=== PATIENT | female | born 1970 | race Caucasian/White ===

== ENCOUNTER 2017-07-22 19:56 | Emergency (ER) | payer OTHER ==
[~2017-07-22] VITALS: Ht 167.6 cm; Wt 65.9 kg
[~2017-07-22 19:56] MED LIST: ENOX60P SQ; PERC5TAB12 PO; WARF6 PO
[2017-07-22 20:01] VITALS: BP 114/73; PULSE 109; RESP 16; TEMP 97.7; O2SAT 98
[2017-07-22] MEDS ORDERED: ONDANSETRON HCL 4 MG/2 ML VIAL IV PUSH ONE (21:15)
[2017-07-22] MEDS ORDERED: SODIUM CHLOR 0.9% 1000 ML INJ 1,000 ML IV ONE (21:15)
[2017-07-22] MEDS ORDERED: MORPHINE SULFATE 2 MG/ML INJ IV PUSH ONE (21:15)
[2017-07-22 21:25] LABS: AUTOMATED NEUTROPHIL # 8.1 TH/MM3 (1.8-7.7); BASOPHIL % 0.3 % (0.0-2.0); EOSINOPHIL % 0.3 % (0.0-4.0); HEMATOCRIT 38.9 % (35.0-46.0); HEMOGLOBIN 13.4 GM/DL (11.6-15.3); LYMPHOCYTE # 1.3 TH/MM3 (1.0-4.8); MEAN CORPUSCULAR HEMOGLOBIN 31.3 PG (27.0-34.0); MEAN CORPUSCULAR HGB CONC 34.4 % (32.0-36.0); MEAN PLATELET VOLUME 8.6 FL (7.0-11.0); MONO % 3.4 % (0.0-8.0); MONOCYTE # 0.3 TH/MM3 (0-0.9); PLATELET COUNT 306 TH/MM3 (150-450); RED BLOOD COUNT 4.27 MIL/MM3 (4.00-5.30); RED CELL DISTRIBUTION WIDTH 12.6 % (11.6-17.2); WHITE BLOOD COUNT 9.8 TH/MM3 (4.0-11.0)
[2017-07-22 21:38] LABS: INTERNATIONAL NORMALIZED RATIO 4.1 RATIO; PROTHROMBIN TIME - PATIENT 41.5 SEC (9.8-11.6)
[2017-07-22 21:43] LABS: BICARBONATE 22.4 MEQ/L (21.0-32.0); CALCIUM 8.3 MG/DL (8.5-10.1); CREATININE 0.68 MG/DL (0.50-1.00)
[2017-07-22] MEDS ORDERED: NORC5TAB PO (22:47)
--- NOTE | 2017-07-22 22:48 | PD ---
HPI . Nosebleed Chief Complaint: Nosebleed Time Seen by Provider: 21:03 Travel History International Travel<30 days: No Contact w/Intl Traveler<30days: No Traveled to known affect area: No History of Present Illness HPI Patient presents with epistaxis. Onset was 6 AM. She states that it has continued all day. It is bleeding from the left knee air. 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 He states that she is now feeling weak and dizzy. The bleeding has been moderate. There have been no modifying factors. PFSH Past Medical History Hx Anticoagulant Therapy: Yes (warfarin) Autoimmune Disease: No Cancer: No Cardiovascular Problems: No Diabetes: No Diminished Hearing: No Deep Vein Thrombosis: Yes (L LEG) Endocrine: No Genitourinary: No Hepatitis: No Hiatal Hernia: No Immune Disorder: No Musculoskeletal: No Neurologic: No Psychiatric: Yes (pt takes lorazepam as needed) Reproductive: Yes (FIBROID TUMOR UTERUS) Respiratory: Yes (PE) Thyroid Disease: No ?: Not Tubal Ligation: Yes Past Surgical History AICD: No Arteriovenous Shunt: No Insulin Pump: No Joint Replacement: No Oral Surgery: Yes (t and a ) Pacemaker: No Tonsillectomy: Yes Other Surgery: No Social History Alcohol Use: Yes (OCC) Tobacco Use: No Substance Use: No Allergies-Medications (Allergen,Severity, Reaction): Coded Allergies: No Known Allergies (Verified , 12/04/13) Reported Meds & Prescriptions Reported Meds & Active Scripts Active Reported Percocet 5/325 (Oxycodone/Acetaminophen) 5 Mg/325 Mg Tab 1 Tab PO Q4H PRN Lovenox (Enoxaparin Sodium) 60 Mg/0.6 Ml Inj 60 Mg SQ BID Coumadin (Warfarin Sodium) 6 Mg Tab 6 Mg PO DAILY pt stopped last dose was 11/30/13 Review of Systems Except as stated in HPI: all other systems reviewed are Neg HENT: Positive: Lightheadedness, Nosebleed Physical Exam Narrative GENERAL: Awake and alert. Moderate distress related to her epistaxis. SKIN: Warm and dry. Good color. HEAD: Normocephalic/atraumatic. EYES: Pupils are equal. Extraocular movements are intact. ENT: Active epistaxis from the left nostril. The blood is also running out of the right nostril and into her mouth. NECK: Normal range of motion. CARDIOVASCULAR: Regular rate and rhythm. RESPIRATORY: Nonlabored respirations. The MUSCULOSKELETAL: Atraumatic. NEUROLOGICAL: Nonfocal. PSYCHIATRIC: Appropriate mood and affect. Data Data Last Documented VS Vital Signs Date Time Temp Pulse Resp B/P (MAP) Pulse Ox O2 Delivery O2 Flow Rate FiO2 07/22/17 20:01 97.7 109 16 114/73 (87) 98 Room Air Orders Orders Complete Blood Count With Diff (07/22/17 20:17) Basic Metabolic Panel (Bmp) (07/22/17 20:17) Prothrombin Time / Inr (Pt) (07/22/17 20:17) Act Partial Throm Time (Ptt) (07/22/17 20:17) Sodium Chlor 0.9% 1000 Ml Inj (Ns 1000 M (07/22/17 21:15) Morphine Inj (Morphine Inj) (07/22/17 21:15) Ondansetron Inj (Zofran Inj) (07/22/17 21:15) Lipase (07/22/17 21:54) Labs Laboratory Tests Test 07/22/17 21:00 White Blood Count 9.8 TH/MM3 Red Blood Count 4.27 MIL/MM3 Hemoglobin 13.4 GM/DL Hematocrit 38.9 % Mean Corpuscular Volume 91.0 FL Mean Corpuscular Hemoglobin 31.3 PG Mean Corpuscular Hemoglobin Concent 34.4 % Red Cell Distribution Width 12.6 % Platelet Count 306 TH/MM3 Mean Platelet Volume 8.6 FL Neutrophils (%) (Auto) 83.0 % Lymphocytes (%) (Auto) 13.0 % Monocytes (%) (Auto) 3.4 % Eosinophils (%) (Auto) 0.3 % Basophils (%) (Auto) 0.3 % Neutrophils # (Auto) 8.1 TH/MM3 Lymphocytes # (Auto) 1.3 TH/MM3 Monocytes # (Auto) 0.3 TH/MM3 Eosinophils # (Auto) 0.0 TH/MM3 Basophils # (Auto) 0.0 TH/MM3 CBC Comment DIFF FINAL Differential Comment Prothrombin Time 41.5 SEC Prothromb Time International Ratio 4.1 RATIO Activated Partial Thromboplast Time 40.1 SEC Blood Urea Nitrogen 16 MG/DL Creatinine 0.68 MG/DL Random Glucose 147 MG/DL Calcium Level 8.3 MG/DL Sodium Level 132 MEQ/L Potassium Level 3.8 MEQ/L Chloride Level 101 MEQ/L Carbon Dioxide Level 22.4 MEQ/L Anion Gap 9 MEQ/L Estimat Glomerular Filtration Rate 92 ML/MIN MDM Medical Decision Making Medical Screen Exam Complete: Yes Emergency Medical Condition: Yes Differential Diagnosis Differential diagnosis includes but is not limited to epistaxis due to an upper respiratory infection, coagulopathy, local trauma, nasal fracture Narrative Course Patient presents with epistaxis. It is probably a posterior bleed. She is on Coumadin. INR was ordered as was a blood count. She has been given IV fluids because of the complaint of dizziness. She has had IV morphine and Zofran for discomfort and nausea. CBC Diagram 07/22/17 21:00 INR 4.0. Bleeding was controlled with a posterior/anterior Rhino Rocket. She'll be discharged home with instructions to hold her Coumadin. Return here in about 36 hours for removal of the packing and to have her INR rechecked. I will give her [place] to take for discomfort associated with packing. Diagnosis Primary Impression: Epistaxis Additional Impression: Warfarin-induced coagulopathy Patient Instructions: Epistaxis (DC), General Instructions Additional Instructions: Return here Thursday morning to have the packing removed and to have your INR rechecked. In the meantime, old Coumadin. You may consider speaking with her physician regarding an alternate anticoagulant. Med/Other Pt SpecificInfo: Prescription(s) given Scripts Hydrocodone-Acetaminophen ([place]) 5 Mg-325 Mg Tab 1 TAB PO Q4H Y for PAIN, #12 TAB 0 Refills Prov: Candida Mora MD 07/22/17 Disposition: DISCHARGE HOME Condition: Stable Candida Mora MD Jul 22, 2017 22:48
[2017-07-22 23:10] VITALS: BP 135/77
== END 2017-07-22 23:01 | disposition home or self-care (01) ==
LOC: NEPC 19:56
DX: R04.0 Epistaxis (principal); D68.9 Coagulation defect, unspecified; R53.1 Weakness; R42 Dizziness and giddiness; Z79.01 Long term (current) use of anticoagulants; Z86.718 Personal history of other venous thrombosis and embolism; Z86.711 Personal history of pulmonary embolism; Z79.899 Other long term (current) drug therapy
CPT/HCPCS: 30905; 80048; 83690; 85025; 85610; 85730; 96361; 96374; 96375; 99284; J2270; J2405; J7030

== ENCOUNTER 2017-07-24 10:21 | Emergency (ER) | payer OTHER ==
[~2017-07-24] VITALS: Ht 167.6 cm; Wt 66.0 kg
[~2017-07-24 10:21] MED LIST changes: +NORC5TAB PO
[2017-07-24 10:24] VITALS: BP 116/79; PULSE 89; RESP 14; TEMP 97.8; O2SAT 98
[2017-07-24 11:24] LABS: AUTOMATED NEUTROPHIL # 9.3 TH/MM3 (1.8-7.7); BASOPHIL % 0.3 % (0.0-2.0); EOSINOPHIL % 0.1 % (0.0-4.0); HEMATOCRIT 35.1 % (35.0-46.0); HEMOGLOBIN 11.9 GM/DL (11.6-15.3); LYMPH % 9.7 % (9.0-44.0); LYMPHOCYTE # 1.1 TH/MM3 (1.0-4.8); MEAN CELL VOLUME 91.5 FL (80.0-100.0); MEAN CORPUSCULAR HEMOGLOBIN 31.1 PG (27.0-34.0); MEAN PLATELET VOLUME 8.3 FL (7.0-11.0); MONO % 6.3 % (0.0-8.0); MONOCYTE # 0.7 TH/MM3 (0-0.9); NEUT % 83.6 % (16.0-70.0); PLATELET COUNT 252 TH/MM3 (150-450); RED BLOOD COUNT 3.84 MIL/MM3 (4.00-5.30); RED CELL DISTRIBUTION WIDTH 12.8 % (11.6-17.2); WHITE BLOOD COUNT 11.1 TH/MM3 (4.0-11.0)
[2017-07-24 11:32] LABS: INTERNATIONAL NORMALIZED RATIO 1.8 RATIO; PROTHROMBIN TIME - PATIENT 18.1 SEC (9.8-11.6)
[2017-07-24 11:48] LABS: ALBUMIN 3.5 GM/DL (3.4-5.0); ALKALINE PHOSPHATASE 109 U/L (45-117); ALT (GPT) 18 U/L (10-53); AST (GOT) 13 U/L (15-37); BICARBONATE 28.3 MEQ/L (21.0-32.0); BLOOD UREA NITROGEN 3 MG/DL (7-18); CALCIUM 8.3 MG/DL (8.5-10.1); CHLORIDE 101 MEQ/L (98-107); CREATININE 0.53 MG/DL (0.50-1.00); GLOMERULAR FILTRATION RATE 123 ML/MIN (>89); GLUCOSE,RANDOM 130 MG/DL (74-106); SODIUM (NA) 135 MEQ/L (136-145); TOTAL BILIRUBIN ADULT 0.9 MG/DL (0.2-1.0); TOTAL PROTEIN 7.3 GM/DL (6.4-8.2)
[2017-07-24 13:45] VITALS: BP 138/93; PULSE 86; RESP 18; O2SAT 99
--- NOTE | 2017-07-24 13:46 | PD ---
HPI Chief Complaint: Wound/Suture/Staple Re-Check Time Seen by Provider: 13:23 Travel History International Travel<30 days: No Contact w/Intl Traveler<30days: No Traveled to known affect area: No History of Present Illness HPI The patient is a 47-year-old female who presents to the emergency department for reevaluation of a nosebleed. The patient was seen in the emergency department 2 days ago for nosebleed the left nare, and subsequent underwent Rhino Rocket placement. The patient's INR at that time was 4.1. The patient does have a history of protein C deficiency and is currently on Coumadin. The patient is followed by her manager meeting, Dr. Barboza. The patient states she had placement of the Rhino Rocket 2 days ago, was advised to come back to the emergency department for removal today. She denies any bleeding down the posterior aspect of the anterior aspect since placement of the tube, however, does complain of pain secondary to placement of the Rhino Rocket. She does complain of left-sided headache. Symptoms are moderate, alleviated with Rhino Rocket, possibly exacerbated by elevated INR level. PFSH Past Medical History Hx Anticoagulant Therapy: Yes (warfarin) Autoimmune Disease: No Cancer: No Cardiovascular Problems: No Diabetes: No Diminished Hearing: No Deep Vein Thrombosis: Yes (L LEG) Endocrine: No Genitourinary: No Hepatitis: No Hiatal Hernia: No Immune Disorder: No Musculoskeletal: No Neurologic: No Psychiatric: Yes (pt takes lorazepam as needed) Reproductive: Yes (FIBROID TUMOR UTERUS) Respiratory: Yes (PE) Thyroid Disease: No Tubal Ligation: Yes Past Surgical History AICD: No Arteriovenous Shunt: No Insulin Pump: No Joint Replacement: No Oral Surgery: Yes (t and a ) Pacemaker: No Tonsillectomy: Yes Other Surgery: No Social History Alcohol Use: Yes (OCC) Tobacco Use: No Substance Use: No Allergies-Medications (Allergen,Severity, Reaction): Coded Allergies: No Known Allergies (Verified Adverse Reaction, Unknown, 07/24/17) Reported Meds & Prescriptions Reported Meds & Active Scripts Active [place] (Hydrocodone-Acetaminophen) 5 Mg-325 Mg Tab 1 Tab PO Q4H PRN Reported Warfarin 7.5 Mg Tab 7.5 Mg PO DAILY Review of Systems General / Constitutional: No: Fever HENT: Positive: Headaches, Nosebleed Cardiovascular: No: Chest Pain or Discomfort Respiratory: Positive: Other (history of PE), No: Shortness of Breath Hematologic/Lymphatic: Positive: Other (history of protein C deficiency with PE , followed by Dr. Barboza) Physical Exam Narrative GENERAL: Awake, alert, pleasant 47 year-old female who appears her stated age and is in no acute respiratory distress. SKIN: Focused skin assessment warm/dry. HEAD: Atraumatic. Normocephalic. EYES: Pupils equal and round. No scleral icterus. No injection or drainage. ENT: Rhino Rocket in place, dual-lumen, and left neck. Dry blood at the external neck, but no active bleeding. No visible active bleeding in the posterior oropharynx. NECK: Trachea midline. No JVD. CARDIOVASCULAR: Regular rate and rhythm. No murmur appreciated. RESPIRATORY: No accessory muscle use. Clear to auscultation. Breath sounds equal bilaterally. MUSCULOSKELETAL: No obvious deformities. No clubbing. No cyanosis. No edema. NEUROLOGICAL: Awake and alert. No obvious cranial nerve deficits. Motor grossly within normal limits. Normal speech. PSYCHIATRIC: Appropriate mood and affect; insight and judgment normal. Data Data Last Documented VS Vital Signs Date Time Temp Pulse Resp B/P (MAP) Pulse Ox O2 Delivery O2 Flow Rate FiO2 07/24/17 13:45 100 18 07/24/17 13:45 138/93 (108) 99 Room Air 07/24/17 10:24 97.8 Orders Orders Complete Blood Count With Diff (07/24/17 10:49) Comprehensive Metabolic Panel (07/24/17 10:49) Prothrombin Time / Inr (Pt) (07/24/17 10:49) Act Partial Throm Time (Ptt) (07/24/17 10:49) Ed Discharge Order (07/24/17 15:05) Labs Laboratory Tests Test 07/24/17 11:00 White Blood Count 11.1 TH/MM3 Red Blood Count 3.84 MIL/MM3 Hemoglobin 11.9 GM/DL Hematocrit 35.1 % Mean Corpuscular Volume 91.5 FL Mean Corpuscular Hemoglobin 31.1 PG Mean Corpuscular Hemoglobin Concent 34.0 % Red Cell Distribution Width 12.8 % Platelet Count 252 TH/MM3 Mean Platelet Volume 8.3 FL Neutrophils (%) (Auto) 83.6 % Lymphocytes (%) (Auto) 9.7 % Monocytes (%) (Auto) 6.3 % Eosinophils (%) (Auto) 0.1 % Basophils (%) (Auto) 0.3 % Neutrophils # (Auto) 9.3 TH/MM3 Lymphocytes # (Auto) 1.1 TH/MM3 Monocytes # (Auto) 0.7 TH/MM3 Eosinophils # (Auto) 0.0 TH/MM3 Basophils # (Auto) 0.0 TH/MM3 CBC Comment DIFF FINAL Differential Comment Prothrombin Time 18.1 SEC Prothromb Time International Ratio 1.8 RATIO Activated Partial Thromboplast Time 35.2 SEC Blood Urea Nitrogen 3 MG/DL Creatinine 0.53 MG/DL Random Glucose 130 MG/DL Total Protein 7.3 GM/DL Albumin 3.5 GM/DL Calcium Level 8.3 MG/DL Alkaline Phosphatase 109 U/L Aspartate Amino Transf (AST/SGOT) 13 U/L Alanine Aminotransferase (ALT/SGPT) 18 U/L Total Bilirubin 0.9 MG/DL Sodium Level 135 MEQ/L Potassium Level 4.2 MEQ/L Chloride Level 101 MEQ/L Carbon Dioxide Level 28.3 MEQ/L Anion Gap 6 MEQ/L Estimat Glomerular Filtration Rate 123 ML/MIN MDM Medical Decision Making Medical Screen Exam Complete: Yes Emergency Medical Condition: Yes Medical Record Reviewed: Yes Differential Diagnosis Differential diagnosis includes epistaxis, protein C deficiency, coagulopathy, Coumadin toxicity, anterior nosebleed, posterior nosebleed. Narrative Course The patient's Rhino Rocket was removed, she had a small amount of bleeding from the nose, direct pressure was applied. INR was evaluated, went from 4.1-1.8. The patient's bleeding did resolve. She had a small amount of clear pink drainage, one to 2 drops per minute, no drainage on the posterior aspect of her throat. The patient was advised to use Afrin, one spray the left nostril twice a day for the next 2 days. She is advised that if bleeding resumes, to apply pressure and if she is unable to resolve the bleeding after 15 minutes to 30 minutes, return for possible packing once again. The patient agrees and understands. Diagnosis Primary Impression: Epistaxis Patient Instructions: General Instructions Additional Instructions: Afrin 1 spray to the left naris twice a day for 2 days. If bleeding resumes hold pressure for 15-30 minutes, if it persists, return to the emergency department. Follow-up with her manager meeting. Please provide the patient a copy of her labs at discharge. Med/Other Pt SpecificInfo: No Change to Meds Disposition: 01 DISCHARGE HOME Condition: Stable Paul Rollins MD Jul 24, 2017 13:46
[2017-07-24] MEDS ORDERED: WARF-21 PO (13:47)
== END 2017-07-24 15:18 | disposition home or self-care (01) ==
LOC: NEPD 10:21
DX: R04.0 Epistaxis (principal); Z51.89 Encounter for other specified aftercare; R51 Headache; Z79.01 Long term (current) use of anticoagulants; Z86.718 Personal history of other venous thrombosis and embolism
CPT/HCPCS: 80053; 85025; 85610; 85730; 99281